=== PATIENT | male | born 1945 | race Caucasian/White ===

== ENCOUNTER 2018-03-22 10:00 | Inpatient (IN) | payer SELFPAY ==
[~2018-03-22] VITALS: Ht 170.2 cm; Wt 62.4 kg
[2018-03-22] VITALS (12 sets, daily range): BP systolic 105–146; BP diastolic 70–80
[~2018-03-22 10:00] MED LIST: CRESTOR20 MG PO; FOLIC ACID1 MG PO; MEDDOSEPAK PO; RAMIPRIL2.5 MG PO; ZITHROMAX250 MG PO
--- NOTE | 2018-03-22 10:10 | NUR ---
PT STATES THAT HE HAS WORSENED TROUBLE BREATHING FOR 2 DAYS. PT UNABLE TO TALK IN FULL SENTENCES, PT TRIPOD ON STRETCHER, GREAT DIFFICULTY IN BREATHING, TACNEPIC. PT IS AOX4. DENIES ANY C/P. PT WHEEZING IN ALL MONTE
[2018-03-22] MEDS ORDERED: ADVAIR DISK1 INH (10:47)
[2018-03-22] MEDS ORDERED: SPIRIVA HANDIH18 MCG (10:48)
--- NOTE | 2018-03-22 10:53 | NUR ---
PT STATES BREATHING HAS IMPROVED WHILE ON BI
[2018-03-22 10:54] LABS: IMMATURE GRANULOCYTES 0.4 % (0.0-5.0); MEAN CELL VOLUME 91.9 fL CALC (80.0-100.0); MEAN CORPUSCULAR HGB 31.1 pG CALC (26.0-32.0); MEAN CORPUSCULAR HGB CONC 33.8 g/L CALC (32.0-36.0); NEUT# 9.12 thou/uL (1.82-7.42); RED BLOOD COUNT 5.31 mill/uL (4.70-6.10); RED CELL DISTRI WIDTH 13.6 % (11.5-15.5)
[2018-03-22 11:01] LABS: HEMATOCRIT 48.8 % (39.0-50.0); HEMOGLOBIN 16.5 g/dl (14.0-18.0)
[2018-03-22 11:10] LABS: CREATININE 1.4 mg/dL (0.7-1.3); POTASSIUM 4.6 mmol/l (3.5-5.1)
--- NOTE | 2018-03-22 11:53 | NUR ---
PT RESTING ON STRETCHER, NO COMPLAINTS STATED AT THIS TIME.
--- NOTE | 2018-03-22 12:53 | NUR ---
PT STATES BREATHING HAS GREATING IMPROVED ON BIPAP. INFORMED OF NPO STATUS.
--- NOTE | 2018-03-22 13:46 | NUR ---
REPORT CALLED TO TING GARBER- ASKED FOR ER TO HOLD PT WHILE A TRANSFER IS BROUGHT IN
--- NOTE | 2018-03-22 13:46 | NUR ---
PT CHANGED TO NASAL CANULA FOR BREATHING TREATMENT, TOLERATING WELL.
--- NOTE | 2018-03-22 14:05 | NUR ---
PT BEGAN TO DESAT ON NASAL CANNULA- CONTINUED ON BIPAP
--- NOTE | 2018-03-22 15:00 | NUR ---
Admission Note Report Given to: TING GARBER Transported by: Wheelchair X Stretcher Transported with: X Nurse Transporter X Patent IV X O2 X Shot Hole Driller TRANSPORTED TO ICU 2 WITHOUT INCIDENT
--- NOTE | 2018-03-22 15:05 | NUR ---
PT. ARRIVED TO THE FLOOR VIA STRETCHER ACCOMPANIED BY ER NURSE AND STUDENTS; PT. TRANSFERRED OVER TO THE BED WITH STAFF ASSISTANCE; PT HAS O2 PER NC AT THIS TIME AND HAS LABORED BREATHING; RT AT BEDSIDE AND PLACED PT. ON BIPAP; VS OBTAINED; PO FLUIDS OFFERED. PT. DECLINES WANTING SOCKS ON AT THIS TIME. EDUCATED ON POC, CALL LIGHT, AND ROOM; VERBALIZES ALL UNDERSTANDING; OBTAINED PMH FROM PER PTS REQUEST; INSTRUCTED PT. TO CALL FOR ANY NEEDS; CALL LIGHT IS IN REACH; WILL CONTINUE TO MONITOR.
--- NOTE | 2018-03-22 16:25 | NUR ---
DR. OLIVARES IN AT BEDSIDE WITH PT. AND .
--- NOTE | 2018-03-22 16:39 | NUR ---
S: HASEEB BEST is a 72 M who presents with shortness of breath. He has a history of COPD, hypertension, hyperlipidemia, and nicotine abuse. All medications in patient's chart were reviewed. O: VS: BP 146/76mmHg, P 100bpm, RR 24bpm, T 98.0F, WBC 11.6 W 62.4kg, HT 5'7", Scr=1.4mg/dL,CrCl= 42.1mL/min A: Blood cultures drawn 03/22/18, pending. P: Patient is on vancomycin and azithromycin 500mg IVQ24H. Patient received one dose each of vancomycin 1g IV, ceftriaxone 1g IV, Zosyn 3.375g IV in the ED. Vancomycin ordered for pharmacy to dose. Start Vancomycin 1g IV Q24H. Vancomycin trough is drawn before the 4th dose on 03/25/18 @ 10:30. Vancomycin goal trough is between 15-20mcg/mL. Pharmacy will follow and or advise on antibiotics use as needed.
--- NOTE | 2018-03-22 17:17 | NUR ---
NOTIFIED DR. OLIVARES THAT HOME MEDICATIONS NEEDED TO BE RESTARTED AND THAT PT. IS SLIGHTLY ANXIOUS IF HE CAN HAVE SOMETHING FOR ANXIETY;
--- NOTE | 2018-03-22 18:25 | NUR ---
PT. SITTING UP IN BED; DECLINES ORDERED LISINOPRIL AT THIS TIME AND XANAX AT THIS TIME; REMAINS AT BEDSIDE; ENCOURAGED TO CALL FOR ANY NEEDS; CALL LIGHT IS IN REACH.
--- NOTE | 2018-03-22 18:50 | NUR ---
REPORT FROM Coreen COLES RN. ASSUMED PT. CARE.
--- NOTE | 2018-03-22 19:45 | NUR ---
PT. FOUND AWAKE, ALERT, ORIENTED X 3. NO DISTRESS. ON THE BIPAP 16/8 FIO2 OF 50%. SPO2 IS 97-99% ON THE BIPAP. PT. DENIES COMPLAINTS OF PAIN OR NEEDS AT THIS TIME. RESPS EVEN UNLABORED ON THE BIPAP. AFEBRILE. OLIVAS. HANK. ORIENTED X 3. BOWEL SOUNDS PRESENT IN ALL QUADS. NO EDEMA NOTED. RASH NOTED TO BOTTOM OF LT. FOOT. UPDATED ON PLAN FOR THE EVEN AND ALL QUESTIONS ANSWERED. CALL LIGHT WITHIN REACH. WILL CONTINUE TO MONITOR.
--- NOTE | 2018-03-22 21:59 | NUR ---
PT. PROVIDED WITH COLD WATER AT THIS TIME PER HIS REQUEST. DENIES OTHER COMPLAINTS OR NEEDS. WILL CONTINUE TO MONITOR.
--- NOTE | 2018-03-22 22:39 | NUR ---
NEB TREATMENT IN PROGRESS AT THIS TIME. PT. VOICES NO COMPLAINTS OR NEEDS. WILL CONTINUE TO MONITOR.
--- NOTE | 2018-03-22 23:46 | NUR ---
PT. REMAINS RESTFUL ON THE BIPAP AT THIS TIME. BP/HR STABLE. CALL LIGHT REMAINS WITHIN REACH. WILL CONTINUE TO CLOSELY MONITOR.
[2018-03-23] VITALS (15 sets, daily range): BP systolic 98–149; BP diastolic 55–94
--- NOTE | 2018-03-23 01:45 | NUR ---
PT. RESTING IN BED REMAINS ON BIPAP AND STABLE. CONTINUES AT 16/8 WITH FIO2 OF 50%. DENIES COMPLAINTS OF PAIN OR NEEDS. VSS.
--- NOTE | 2018-03-23 03:43 | NUR ---
PT. BIPAP MASK READJUSTED TO REDUCE LEAK AT THIS TIME. PT. RESTING WITH EYES CLOSED. VOICES NO COMPLAINTS OR NEEDS. WILL CONTINUE TO MONITOR.
--- NOTE | 2018-03-23 04:35 | NUR ---
LABS DRAWN AT THIS TIME. IV CHANGED OUT. PT. PROVIDED WITH WATER PER HIS REQUEST. CHANGED TO NASAL CANNULA AT 4L AT THIS TIME. WILL OBSERVE FOR SATISFACTORY OXYGENATION.
--- NOTE | 2018-03-23 05:24 | NUR ---
PT. PLACED ON HIGH FLOW NASAL CANNUAL AT THIS TIME BY RT. NEB TREATMENT IN PROGRESS. WILL CONTINUE TO CLOSELY MONITOR.
[2018-03-23 06:01] LABS: IMMATURE GRANULOCYTES 0.5 % (0.0-5.0); MEAN CELL VOLUME 92.1 fL CALC (80.0-100.0); MEAN CORPUSCULAR HGB 31.1 pG CALC (26.0-32.0); MEAN CORPUSCULAR HGB CONC 33.8 g/L CALC (32.0-36.0); NEUT# 5.88 thou/uL (1.82-7.42); RED BLOOD COUNT 4.56 mill/uL (4.70-6.10); RED CELL DISTRI WIDTH 13.5 % (11.5-15.5)
[2018-03-23 06:03] LABS: HEMOGLOBIN 14.2 g/dl (14.0-18.0)
--- NOTE | 2018-03-23 06:22 | NUR ---
PT. RESTING WELL ON HIGH FLOW NASAL CANNULA. SPO2 IN THE LOW-MID 90'S. CALL LIGHT REMAINS WIHTIN REACH. WILL CONTINUE TO MONITOR.
[2018-03-23 06:34] LABS: ALKALINE PHOSPHATASE 62 u/l (38-126); AMYLASE 43 u/l (30-110); ANION GAP 15 (6-22 (CALC)); BILIRUBIN, TOTAL 0.6 mg/dL (0.0-1.4); BUN 26 mg/dL (8-23); BUN/CREATININE RATIO 21 (12-20 (CALC)); CARBON DIOXIDE 27 mmol/l (22-30); CHLORIDE 104 mmol/l (95-108); CREATININE 1.3 mg/dL (0.7-1.3); GFR 54 ML/MIN (>=60 (CALC)); GFR FOR AFR.AMER. > 60 ML/MIN (>=60 (CALC)); LIPASE 80 u/l (23-300); POTASSIUM 5.1 mmol/l (3.5-5.1); SGOT/AST 24 u/l (19-48); SODIUM 141 mmol/l (137-146); TOTAL PROTEIN 6.5 g/dL (6.3-8.2)
[2018-03-23 06:35] LABS: ALBUMIN 3.6 g/dL (3.2-5.0)
--- NOTE | 2018-03-23 08:00 | NUR ---
PT SEEN AWAKE, ALERT, ORIENTED X 3. LUNGS ARE DIMINISHED WITH SLIGHT COARSENESS IN BASES, USING 4 LPM ON HIGH FLOW METER. NO COMPLAINTS OF SHORTNESS OF BREATH.
--- NOTE | 2018-03-23 12:00 | NUR ---
PT CONTINUES BEFORE, NO DISTRESS. PT STATES THAT HE FEELS BETTER NOW. LUNGS ARE NOW CLEAR. HAS BEEN AT BEDSIDE THIS MORNING.
--- NOTE | 2018-03-23 14:14 | NUR ---
renal ultrasound explained to pt; pt and spouse declined; ultrasound Carlos Alberto informed of pt refusal of procedure
--- NOTE | 2018-03-23 16:00 | NUR ---
PT PROVIDED ANTIBIOTICS ORDERED, STATES THAT HE FEELS MUCH BETTER. PT REFUSED RENAL U/S, SAYING THAT HE WILL GET ONE IN [place], WHERE HE LIVES. NO COMPLAINT OF PAIN OR SHORTNESS OF BREATH. PT HOPES FOR DISCHARGE HOME TOMORROW.
--- NOTE | 2018-03-23 18:02 | NUR ---
PT ADMITS TO SHORTNESS OF BREATH WITH MINIMAL EXERTION, SEEN LABORED IN HIS BREATHING JUST NOW. NO ACUTE DISTRESS.
--- NOTE | 2018-03-23 19:09 | NUR ---
REPORT FROM SHIRLENE MATHUR. ASSUMED PT. CARE.
--- NOTE | 2018-03-23 20:40 | NUR ---
PT. FOUND AWAKE, ALERT, ORIENTED X 3. SKIN WARM AND DRY. RESPS EVEN, SHALLOW, UNLABORED. SPO2 IS 94% ON HIGH FLOW NASAL CANNULA. BP/HR STABLE. PT. STATES WITH MILD ANXIETY THROUGHOUT THE DAY. WILL MEDICATE AT BEDTIME ORDERED. BOWEL SOUND PRESENT IN ALL QUADS. DISTIL PULSES INTACT. AFEBRILE. MAE. MCKINNEY. DENIES COMPLAINTS OF PAIN. CALL LIGHT WITHIN REACH. WILL CONTINUE TO MONITOR.
--- NOTE | 2018-03-23 22:06 | NUR ---
PT. MEDICATED PER PHYSICIAN ORDERS. DENIES OTHER COMPLAINTS OR NEEDS. URINAL AND CALL LIGHT WITHIN REACH.
[2018-03-24] VITALS (7 sets, daily range): BP systolic 99–130; BP diastolic 55–68
--- NOTE | 2018-03-24 00:05 | NUR ---
PT. RESTING IN BED WITH EYES CLOSED. REMAINS ON HIGH-FLOW NASAL CANNULA AT THIS TIME. SPO2 REMAINS IN LOW 90'S WITH NASAL CANNULA. RESPS EVEN, SHALLOW, UNLABORED. CALL LIGHT REMAINS WITHIN REACH. WILL CONTINUE TO MONITOR.
--- NOTE | 2018-03-24 03:09 | NUR ---
PT. CONTINUES TO REST IN NO DISTRESS. NASAL CANNULA REPLACED AT THIS TIME. WHEN NASAL CANNULA OUT OF NARES, PT. SPO2 IN MID/LOW 80'S. SKIN REMAINS WARM AND DRY. HANK.
--- NOTE | 2018-03-24 04:15 | NUR ---
PT. RESTING IN BED WITH EYES CLOSED IN NO DISTRESS. RESPS REMAIN EVEN, SHALLOW, UNLABORED. REMAINS STABLE. VSS. SPO2 REMAINS IN LOW 90'S ON HIGH FLOW O2.
--- NOTE | 2018-03-24 05:30 | NUR ---
PT. REMAINS EASILY AROUSABLE TO LIGHT VERBAL STIMULI. LAB AT BEDSIDE TO DRAW PT. PT. REMAINS STABLE ON THE MONITOR. HR IN THE 70'S WITH OCCASIONAL PVC'S. SPO2 IS 90% ON HIGH FLOW NASAL CANNULA. BP STABLE.
--- NOTE | 2018-03-24 05:46 | NUR ---
NEB TREATMENT IN PROGRESS AT THIS TIME.
[2018-03-24 05:51] LABS: HEMATOCRIT 38.5 % (39.0-50.0); HEMOGLOBIN 12.8 g/dl (14.0-18.0); IMMATURE GRANULOCYTES 0.8 % (0.0-5.0); MEAN CELL VOLUME 92.3 fL CALC (80.0-100.0); MEAN CORPUSCULAR HGB 30.7 pG CALC (26.0-32.0); MEAN CORPUSCULAR HGB CONC 33.2 g/L CALC (32.0-36.0); NEUT# 20.16 thou/uL (1.82-7.42); RED BLOOD COUNT 4.17 mill/uL (4.70-6.10); RED CELL DISTRI WIDTH 13.6 % (11.5-15.5)
[2018-03-24 06:25] LABS: ALBUMIN 3.2 g/dL (3.2-5.0); ALKALINE PHOSPHATASE 57 u/l (38-126); ANION GAP 13 (6-22 (CALC)); BILIRUBIN, TOTAL 0.4 mg/dL (0.0-1.4); BUN 28 mg/dL (8-23); BUN/CREATININE RATIO 26 (12-20 (CALC)); CARBON DIOXIDE 27 mmol/l (22-30); CHLORIDE 105 mmol/l (95-108); CREATININE 1.1 mg/dL (0.7-1.3); GFR > 60 ML/MIN (>=60 (CALC)); GFR FOR AFR.AMER. > 60 ML/MIN (>=60 (CALC)); MAGNESIUM 2.2 mg/dL (1.6-2.3); SGOT/AST 20 u/l (19-48); SODIUM 140 mmol/l (137-146); TOTAL PROTEIN 5.8 g/dL (6.3-8.2)
--- NOTE | 2018-03-24 08:00 | NUR ---
PT SEEN AWAKE, ALERT, ORIENTED X 3. PT STATES THAT HE IS BREATHING BETTER TODAY. LUNGS CLEAR, 4 LPM NC. PT CONTINUES WITH MILD DYSPNEA UPON EXERTION, CATCHES BREATH WITH REST. NO ACUTE DISTRESS NOTED.
[2018-03-24] MEDS ORDERED: DOXYCYCL HYC100 MG PO (11:03)
[2018-03-24] MEDS ORDERED: MEDDOSEPAK PO (11:03)
[2018-03-24] MEDS ORDERED: XANAX XR0.5 MG PO (11:04)
--- NOTE | 2018-03-24 11:37 | NUR ---
DR OLIVARES HAS SEEN PT THIS AM, PT READY FOR DISCHARGE HOME. PT VERBALIZES UNDERSTANDING OF DC INSTRUCTIONS, TO LOBBY BY WHEELCHAIR.
== END 2018-03-24 11:45 | disposition home or self-care (01) | DRG 189 ==
LOC: ED 10:00 → ED-I 11:28 → ED 11:39 → ICU 11:40
PROVIDERS: Family Medicine; ADMIT Internal Medicine Nephrology; ATTEND Internal Medicine Nephrology
PROC: 5A09357 Assistance with Respiratory Ventilation, Less than 24 Consecutive Hours, Continuous Positive Airway Pressure (ICD-10-PCS; principal; 2018-03-22)
DX: J96.02 Acute respiratory failure with hypercapnia (principal); J44.1 Chronic obstructive pulmonary disease with (acute) exacerbation; J44.0 Chronic obstructive pulmonary disease with (acute) lower respiratory infection; J96.01 Acute respiratory failure with hypoxia; J20.9 Acute bronchitis, unspecified; J10.1 Influenza due to other identified influenza virus with other respiratory manifestations; I12.9 Hypertensive chronic kidney disease with stage 1 through stage 4 chronic kidney disease, or unspecified chronic kidney disease; N18.3 Chronic kidney disease, stage 3 (moderate); E78.5 Hyperlipidemia, unspecified; F41.9 Anxiety disorder, unspecified; Z87.891 Personal history of nicotine dependence
CPT/HCPCS: J1650